=== PATIENT | female | born 2005 | race African-American/Black ===

== ENCOUNTER 2023-01-28 19:03 | Emergency (ER) | payer BC, MEDICAID ==
[~2023-01-28] VITALS: Ht 162.6 cm; Wt 81.7 kg
[2023-01-28] MEDS ORDERED: IBUPROFEN 600MG TABLET PO ONE (20:45)
[2023-01-28] MEDS ORDERED: IBUP-2029 MT (21:54)
[2023-01-28 22:11] VITALS: BP 111/68
== END 2023-01-28 22:16 | disposition home or self-care (01) ==
LOC: ER 19:03
DX: S63.697A Other sprain of left little finger, initial encounter (principal); Z91.013 Allergy to seafood; X58.XXXA Exposure to other specified factors, initial encounter; Y93.B2 Activity, push-ups, pull-ups, sit-ups; Y92.018 Other place in single-family (private) house as the place of occurrence of the external cause
CPT/HCPCS: 73140; 99283